=== PATIENT | female | born 1990 ===

== ENCOUNTER → 2018-05-13 | Emergency (ER) | payer SELFPAY ==
[2018-05-13 22:48] VITALS: BMI 29.8
--- NOTE | 2018-05-13 22:52 | OBHP ---
Datetime: 05/13/2018 22:47 IP Adm Impression: , intrauterine ; No Active Labor; Intact Membranes IP Admit Plan: Observation/Evaluation Admit Comment, IP Provider: 28yo [id number] IUP at 38w c/o constant lower pain abd since yesterday. mid line non radiating. No SROM. NO VB. +FM care: CF labs / sono rev'd - Hx UTI February 2018 POBH: Spont ab PGYNH: no STD PMH: denies PSH dnies NKA PSOH Ranulfo smoking ETOH drugs A: IUP at 36w abd pain PLAN: NST; check UA Extremities - PN: Normal Abdomen - PN: Normal Back - PN: Normal Heart - PN: Normal HEENT - PN: Normal General - PN: Normal Membranes, Provider: Intact Pool Provider: Negative IP Hx Assessment: The History has been Reviewed and is Current Vital Signs Provider: Reviewed; Within Normal Limits IP Chief Complaint: Other Dilatation, Provider: 0 Effacement, Provider: 0 Genitourinary Exam: Normal
[2018-05-13 23:15] LABS: SQUAMOUS EPITHIAL 1 /hpf (0-5); URINE BILIRUBIN NEGATIVE (NEGATIVE); URINE BLOOD NEGATIVE (NEGATIVE); URINE CLARITY CLEAR (Clear); URINE COLOR COLORLESS (YELLOW); URINE GLUCOSE (UA) NEG (Normal); URINE LEUKOCYTE ESTERASE NEG Leu/uL (Negative); URINE PROTEIN NEGATIVE (NEGATIVE); URINE UROBILINOGEN 0.2-1.0 mg/dL (0.2-1.0)
--- NOTE | 2018-05-13 23:20 | OBDCSUM ---
Datetime: 05/13/2018 23:11 Discharged to, Provider: Home Follow up at, Provider: [facility] Disch Instr Activity: Normal activity Disch Instr Diet: Regular Discharge Diagnosis, Provider: [facility] - Undelivered Discharge Time: 05/13/2018 23:12 Follow up in weeks, Provider: Ritchie chin Disch Referrals: None Discharge Comment, Provider: KB boswell
[2018-05-14 11:52] VITALS: TEMP 98.2
== END | disposition home or self-care (01) ==
LOC: H.EROB2 22:22
DX: O26.93 Pregnancy related conditions, unspecified, third trimester (principal); R10.2 Pelvic and perineal pain; Z3A.36 36 weeks gestation of pregnancy

== ENCOUNTER 2018-05-16 11:35 | Emergency (ER) | payer SELFPAY ==
[2018-05-13 22:48] VITALS: BMI 29.8
[2018-05-16 18:27] VITALS: BP 118/71; PULSE 104
== END 2018-05-16 13:09 | disposition home or self-care (01) ==
LOC: H.EROB2 11:35
DX: O26.93 Pregnancy related conditions, unspecified, third trimester (principal); R10.2 Pelvic and perineal pain; O26.853 Spotting complicating pregnancy, third trimester; Z3A.36 36 weeks gestation of pregnancy